=== PATIENT | male | born 1970 | race Caucasian/White ===

== ENCOUNTER 2023-02-25 16:22 | Emergency (ER) | payer OTHER ==
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
[2023-02-25 19:23] VITALS: BP 116/53; TEMP 97.2; O2SAT 92
== END 2023-02-25 18:55 | disposition home or self-care (01) ==
LOC: ER 16:22
DX: T21.22XA Burn of second degree of abdominal wall, initial encounter (principal); L03.311 Cellulitis of abdominal wall; F17.210 Nicotine dependence, cigarettes, uncomplicated
CPT/HCPCS: 99281

== ENCOUNTER 2023-10-13 22:57 | Inpatient (IN) | payer OTHER ==
--- OUTSIDE RECORDS SUMMARY | 2023-10-13 23:01 | XMS REPORT | Continuity of Care Document ---
Author Name Unknown Address [address] [facility] [address] th[address] Address [address] [facility] [place] [address] Care Team Providers Care General Office Worker Name Role Phone CHRISTINA WHITE Attending Clinician Unavailable Payers Payer Name Policy Type Policy Number Effective Date Expirati on Date Source [employer] [id number] 2012 00:00:00 Encounters Start Date/Time End Date/Time Encounter Type Admission Type Attending Clinicians Care Facility Care Department Encounter ID Source 2023-11-21 09:15:00 2023-11-21 09:15:00 Outpatient CHRISTINA WHITE [facility] ER [id number] [facility]
[2023-10-14] MEDS ORDERED: ONDANSETRON 4 MG/2 ML VIAL ONE ×2 (00:12→00:38)
[2023-10-14] MEDS ORDERED: FAMOTIDINE 20 MG/2 ML VIAL IV ONE (00:13)
[2023-10-14] MEDS ORDERED: MORPHINE 4 MG/ML SYR ONE ×2 (00:13→03:39)
[2023-10-14] MEDS ORDERED: HALOPERIDOL LACT 5 MG/ML INJ ONE (00:13)
[2023-10-14] MEDS ORDERED: NA CHLORIDE 0.9% 1,000 ML ONE ×2 (00:13→13:41)
[2023-10-14 00:30] LABS: Absolute Lymphocytes (CBC) 1.4 K/uL (0.7-4.9); Hematocrit 39.5 % (39.6-49.0); Lymphocytes % 6.4 % (15.3-44.8); MCV 79.6 fL (80-100); MPV 7.4 fL (7.6-11.3); Platelets 439 thou/uL (152-406); RBC Red Blood Cell Count 4.96 M/uL (4.33-5.43)
[2023-10-14 00:48] LABS: Albumin 3.8 g/dL (3.4-5.0); Bilirubin Total 0.5 mg/dL (0.2-1.0); Potassium 3.4 mEq/L (3.5-5.1)
[2023-10-14 01:13] LABS: Blood Morphology Comment NOT SEEN (NOT SEEN); Platelet Estimate INCR
[2023-10-14 03:21] LABS: Specific Gravity 1.017 (1.005-1.030); Urine Bilirubin NEGATIVE (Negative); Urine Blood Negative (Negative); Urine Clarity Clear (Clear); Urine Color Colorless (Yellow); Urine Glucose NEGATIVE (Negative); Urine Protein NEGATIVE (Negative); Urine Urobilinogen Normal (Normal)
[2023-10-14] MEDS ORDERED: ACETAMINOPHEN 500 MG TAB PO PRN (03:30)
--- NOTE | 2023-10-14 03:33 | EDPHYS ---
Physician Documentation [facility] Name: Amanda Arredondo Age: 53 yrs Sex: Male : 1970 Arrival Date: 10/13/2023 Time: 22:57 Bed 18 Private MD: ED Physician Marc Buckley HPI: 10/13 23:07 This 53 yrs old Male presents to ER via Unassigned with complaints of sp4 abdominal pain and vomiting. 10/14 03:32 53-year-old male with history of morbid obesity, COPD, congestive heart failure, sp4 hypertensive disorder, sleep apnea, and large ventral abdominal hernia, presents with acute onset of profuse vomiting starting at 12 PM prior to arrival. Patient arrived with EMS who administered 100 mcg IV fentanyl and 10 mg IV Reglan. Also some IV fluids were given , on 08/30/2023 patient was transferred to [facility] for presumed hernia incarceration associated with small bowel obstruction. Patient states he was managed medically at [facility] and discharged home 4 days later. . Historical: - Allergies: 10/13 23:13 No Known Allergies; me1 - PMHx: 23:13 Chronic obstructive lung disease; Congestive heart failure; Hypertensive disorder; me1 Sleep Apnea; Bowel problem; - PSHx: 10/14 03:37 colon resection; intestinal hernia (le); Tonsillectomy; la4 - Immunization history:: Adult Immunizations up to date. - Social history:: Smoking status: Patient/guardian denies using tobacco, Stopped _ months ago 1. - Family history:: not pertinent. ROS: 03:32 Constitutional: Negative for fever, chills, and weight loss, positive vomiting, sp4 positive diffuse abdominal pain, positive fatigue 03:32 All other systems are negative, Exam: 03:32 Constitutional: This is a well developed, well nourished patient who is awake, alert, sp4 morbidly obese male ill-appearing, nontoxic Head/Face: Normocephalic, atraumatic. Eyes: Pupils equal round and reactive to light, extra-ocular motions intact. Lids and lashes normal. Conjunctiva and sclera are not injected. Cornea within normal limits. Periorbital areas with no swelling, redness, or edema. ENT: Nares patent. No nasal discharge, no septal abnormalities noted. Tympanic membranes are normal and external auditory canals are clear. Oropharynx with no redness, swelling, or masses, exudates, or evidence of obstruction, uvula midline. Mucous membranes moist. Neck: Trachea midline, no thyromegaly or masses palpated, and no cervical lymphadenopathy. Supple, full range of motion without nuchal rigidity, or vertebral point tenderness. Chest/axilla: Normal chest wall appearance and motion. Nontender with no deformity. No lesions are appreciated. Cardiovascular: Regular rate and rhythm with a normal S1 and S2. No gallops, murmurs, or rubs. Normal PMI, no JVD. No pulse deficits. Respiratory: Lungs have equal breath sounds bilaterally, clear to auscultation and percussion. No rales, rhonchi or wheezes noted. No increased work of breathing, no retractions or nasal flaring. Abdomen/GI: Soft, obese abdomen, large lower ventral abdominal hernia that is not reducible. Decreased bowel sounds on auscultation. No tympany, abdomen distended but no tense tympany Back: No spinal tenderness. No costovertebral tenderness. There is sacral decubitus ulcer that is covered by the wound VAC. Male : Normal genitalia with no discharge or lesions. Skin: Warm, dry with normal turgor. Normal color with no rashes, no lesions, and no evidence of cellulitis. MS/ Extremity: Pulses equal, no cyanosis. Neurovascular intact. Full, normal range of motion. Neuro: Awake and alert, GCS 15, oriented to person, place, time, and situation. Cranial nerves II-XII grossly intact. Motor strength 5/5 in all extremities. Sensory grossly intact. Psych: Awake, alert, with orientation to person, place and time. Behavior, mood, and affect are within normal limits Vital Signs: 10/13 23:08 BP 152 / 98; Pulse 113; Resp 20; Temp 97.8(O); Pulse Ox 91% on R/A; Weight 117.93 kg; me1 Height 5 ft. 3 in. ; Pain 10; 10/14 00:00 BP 122 / 66; Pulse 90; Resp 20; Pulse Ox 94% ; la4 00:30 BP 125 / 74; Pulse 91; Resp 22; Pulse Ox 95% ; la4 01:30 BP 134 / 73; Pulse 91; Resp 20; Pulse Ox 97% ; la4 02:00 BP 112 / 75; Pulse 99; Resp 22; Temp 98.5; Pulse Ox 97% ; la4 04:34 BP 132 / 73; Pulse 75; Resp 18; Pulse Ox 98% on R/A; la4 10/13 23:08 Body Mass Index 46.06 (117.93 kg, 160.02 cm) me1 10/13 23:08 Pain Scale: Adult me1 10/13 23:08 o2 at 3 LPM via NC at home, applied and O2 sat increased to 97%. me1 Hillman Coma Score: 10/14 00:30 Eye Response: spontaneous(4). Motor Response: obeys commands(6). Verbal Response: la4 oriented(5). Total: 15. 04:34 Eye Response: spontaneous(4). Motor Response: obeys commands(6). Verbal Response: la4 oriented(5). Total: 15. MDM: 10/13 23:07 Patient medically screened. sp4 10/14 02:48 ED course: EXAM: CTAbdomen and Pelvis With Intravenous Contrast CLINICAL HISTORY: ABD sp4 PAIN TECHNIQUE: Axial computed tomography images of the abdomen and pelvis with intravenous contrast. Sagittal and coronal reformatted images were created and reviewed. This CT exam was performed using one or more of the following dose reduction techniques: automated exposure control, adjustment of the mA and/or kV according to patient size, and/or use of iterative reconstruction technique. COMPARISON: No relevant prior studies available. FINDINGS: Lung bases: Unremarkable. No mass. No consolidation. Mediastinum: Mild to moderate thickening of the mid to distal esophagus extending to the GE junction. ABDOMEN: Liver: The liver is enlarged and diffusely low in density compatible with steatosis. Gallbladder and bile ducts: Unremarkable. No calcified stones. No ductal dilation. Pancreas: Unremarkable. No mass. No ductal dilation. Spleen: Unremarkable. No splenomegaly. Adrenals: Unremarkable. No mass. Kidneys and ureters: Normal renal cortical enhancement bilaterally. Bilateral cysts, the largest at the lower pole on the left measuring 9.8 cm. No follow-up imaging is recommended. JACR 2018 Nov; 264-273, Management of the Incidental Renal Mass on CT, [employer] 2020; 814-848, Bosniak Classification of Cystic Renal Masses, Version 2019. No calculi. No hydronephrosis. Stomach and bowel: Moderate to severe gastric distention. Colonic diverticula without adjacent inflammatory change. PELVIS: Appendix: The appendix is collimated off the [id number]. Bladder: The urinary bladder is decompressed. Reproductive: Unremarkable as visualized. ABDOMEN and PELVIS: Intraperitoneal space: Unremarkable. No free air. No significant fluid collection. Bones/joints: Multilevel spondylosis. No acute fracture. Subtle serpentine sclerosis of the femoral heads bilaterally, right greater than left most compatible with early avascular necrosis. No subchondral collapse. No dislocation. Soft tissues: Rectus muscle diastases with a large ventral abdominal wall hernia extending to the right and which is partially collimated off the [id number]. The hernia contains numerous small bowel loops, including of small bowel anastomosis as well as the proximal to mid large bowel. There are multiple borderline prominent fluid-filled small bowel loops. Infiltrative changes within and subjacent to the hernia. Small bilateral fat-containing inguinal hernias. Vasculature: Mild to moderate atherosclerotic disease. No abdominal aortic aneurysm. The main portal, superior mesenteric and splenic veins are patent. Lymph nodes: Subcentimeter gastrohepatic, selene hepatic and portacaval lymph nodes. IMPRESSION: 1. Findings suggestive of nonspecific esophagitis with most pronounced thickening at the level of the GE junction. Direct visualization may be necessary for further evaluation. 2. Significant gastric distention. Numerous borderline prominent small bowel loops. There is a large ventral abdominal hernia containing numerous small bowel loops as well as the proximal to mid large bowel. The possibility of a developing obstruction cannot be excluded on the basis of this examination. Mild infiltrative changes within and subjacent to the hernia which can be seen in the setting of incarceration. 3. Other findings as above. Electronically signed by: Clement Obando MD 10/14/2023 02:18 AM. 03:32 Differential Diagnosis altered mental status, sepsis, flu, SBO, incarcerated abdominal sp4 hernia. Data reviewed: vital signs, nurses notes, EMS record, old medical records, lab test result(s), radiologic studies, CT scan. Consideration of Admission/Observation Patient was admitted/placed on observation. Escalation of care including admission/observation considered. Management of patient was discussed with the following: Hospitalist: Dr. Miguel. Outsole Splicer: Dr. Malcolm general surgery. ED course: Patient warrants admission to the hospital. NG tube was placed in ER and 1 L of gastric juice was evacuated from the stomach. Patient feels improved but request pain medicine. Will admit to hospitalist with consultation to general surgery for SBO. . 04:45 ED course: EXAM: XR Abdomen, 1 View CLINICAL HISTORY: The patient is 53 years old and sp4 is Male; NG tube placement TECHNIQUE: Frontal supine view of the abdomen/pelvis. COMPARISON: No relevant prior studies available. FINDINGS: Gastrointestinal tract: Unremarkable. No dilation. Bones/joints: Unremarkable. No acute fracture. Tubes, lines and devices: Nasogastric tube coursing below the diaphragm with tip and sidehole overlying the left upper quadrant. IMPRESSION: Nasogastric tube coursing below the diaphragm with tip and sidehole overlying the left upper quadrant.. 10/13 23:06 Order name: CBC with Diff; Complete Time: 03:16 [facility] 10/13 23:06 Order name: CMP; Complete Time: 03:16 [facility] 10/13 23:06 Order name: Lipase; Complete Time: 03:16 [facility] 10/13 23:06 Order name: Urinalysis w/ reflexes; Complete Time: 03:47 [facility] 10/14 00:38 Order name: Manual Differential; Complete Time: 03:16 [facility] 10/14 03:35 Order name: CBC with Automated Diff [facility] 10/14 03:35 Order name: CBC with Automated Diff [facility] 10/14 03:35 Order name: Comprehensive Metabolic Panel [facility] 10/14 03:35 Order name: Comprehensive Metabolic Panel [facility] 10/14 03:46 Order name: Lactate w/ 2H reflex if indic. [facility] 10/13 23:06 Order name: CT Abd/Pelvis - IV Contrast Only [facility] 10/14 03:16 Order name: Abdomen 1 View XRAY [facility] 10/14 03:35 Order name: CONS Physician Consult [facility] 10/13 23:06 Order name: IV Saline Lock; Complete Time: 00:24 [facility] 10/13 23:06 Order name: Labs collected and sent; Complete Time: 00:24 [facility] 10/14 02:49 Order name: NG Tube; Complete Time: 03:34 [facility] Administered Medications: 00:23 Drug: Haloperidol IVP 2.5 mg/50 mL 2.5 mg IVP once; Place patient on a school lunch monitor me1 Route: IVP; Site: right antecubital; 00:23 Drug: NS 0.9% IV 1000 ml IV at 1 bolus Per protocol; 1000 mL bolus Route: IV; Rate: 1 me1 bolus; Site: right antecubital; 00:23 Drug: Famotidine IVP 20 mg IVP once; dilute with 10 mL 0.9% NaCl; give over 2 minutes me1 Route: IVP; Site: right antecubital; 00:23 Drug: Ondansetron IVP 4 mg IVP once; over 2 minutes Route: IVP; Site: right antecubital;me1 00:23 Drug: morphine IVP or IV 4 mg IVP once over 4 mins Route: IVP; Infused Over: 4 mins; me1 Site: right antecubital; 03:59 Drug: morphine IVP or IV 4 mg IVP once over 4 mins Route: IVP; Infused Over: 4 mins; la4 Site: right antecubital; 04:51 Follow up: Response: No adverse reaction; Pain is decreased la4 03:59 Drug: metoCLOPramide IVP 10 mg IVP once; over 1 to 2 minutes Route: IVP; Site: right la4 antecubital; 04:50 Follow up: Response: No adverse reaction; Nausea is decreased la4 03:59 Drug: NS 0.9% IV 1000 ml IV at 125 ml/hr continuous Route: IV; Rate: 125 ml/hr; Site: la4 right antecubital; Disposition Summary: 10/14/23 03:32 Hospitalization Ordered Notes: Hospitalization Status: Inpatient Admission sp4 Provider: Bear Miguel Condition: Stable sp4 Problem: new sp4 Symptoms: have improved sp4 Bed/Room Type: Standard sp4 Location: Intensive Care Unit(10/14/23 03:55) lg3 Room Assignment: 5-(10/14/23 03:55) lg3 Diagnosis - Small bowel obstruction, abdominal distention, gastric distention, ventral sp4 abdominal hernia without incarceration Forms: - Medication Reconciliation Form sp4 - SBAR form sp4 - Leadership Thank You Letter sp4 Signatures: Dispatcher [employer] An Goldsmith RN RN Esha Moseley RN RN lg3 Marc Buckley MD MD sp4 Laura Gupta RN RN me1 Kimi Paul RN RN la4 Corrections: (The following items were deleted from the chart) 01/13 23:15 23:13 PMHx: bowel obstruction (Sleep Apnea); me1 me1 10/14 03:55 03:32 Telemetry/MedSurg (Inpatient) sp4 cg 03:55 03:32 sp4 cg 03:55 03:55 Intensive Care Unit cg lg3 03:55 03:55 5- cg lg3
--- NOTE | 2023-10-14 03:33 | ER ---
Nurse's Notes [facility] Name: Amanda Arredondo Age: 53 yrs Sex: Male : 1970 Arrival Date: 10/13/2023 Time: 22:57 Bed 18 Private MD: Diagnosis: Small bowel obstruction, abdominal distention, gastric distention, ventral abdominal hernia without incarceration Presentation: 10/13 23:08 Chief complaint: EMS states: toned out for abdominal pain. Large abdominal hernia me1 noted. Patient recently admitted to [facility] for bowel obstruction that resolved with NG decompression and bowel rest. Patient is only eating liquid diet at this time. Earlier today pain returned with n/v. 20g to RAC, EMS administered fentanyl 100 mcg and reglan 10 mg IV. Pain on arrival to ER is 7/10, sharp and cramping. Coronavirus screen: Vaccine status: Patient reports receiving the 2nd dose of the covid vaccine. Ebola Screen: No symptoms or risks identified at this time. Initial Sepsis Screen: Does the patient meet any 2 criteria? HR > 90 bpm. No. Patient's initial sepsis screen is negative. Does the patient have a suspected source of infection? No. Patient's initial sepsis screen is negative. Risk Assessment: Do you want to hurt yourself or someone else? Patient reports no desire to harm self or others. Onset of symptoms was October 13, 2023 at 12:00. 23:08 Method Of Arrival: EMS me1 23:08 Acuity: BETTY 3 me1 Triage Assessment: 23:13 General: Appears uncomfortable, ill, obese, Behavior is calm, cooperative, appropriate me1 for age, Reports abdominal pain and nausea that started about noon today. Pain: Complains of pain in abdomen Pain does not radiate. Pain currently is 7 out of 10 on a pain scale. Quality of pain is described as crampy, sharp, Pain began suddenly, Is continuous. Neuro: Level of Consciousness is awake, alert, obeys commands, Oriented to person, place, time, situation, Appropriate for age. Cardiovascular: Capillary refill < 3 seconds Patient's skin is warm and dry. Respiratory: Airway is patent Respiratory effort is even, unlabored, Respiratory pattern is regular, symmetrical. GI: large abdominal hernia noted with abdominal binder in place for support. Reports lower abdominal pain, upper abdominal pain, nausea, vomiting, since noon today. Historical: - Allergies: 23:13 No Known Allergies; me1 - PMHx: 23:13 Chronic obstructive lung disease; Congestive heart failure; Hypertensive disorder; me1 Sleep Apnea; Bowel problem; - PSHx: 10/14 03:37 colon resection; intestinal hernia (le); Tonsillectomy; la4 - Immunization history:: Adult Immunizations up to date. - Social history:: Smoking status: Patient/guardian denies using tobacco, Stopped _ months ago 1. - Family history:: not pertinent. Screenin:30 [facility] ED Fall Risk Assessment (Adult) History of falling in the last 3 months, la4 including since admission No falls in past 3 months (0 pts) Confusion or Disorientation No (0 pts) Intoxicated or Sedated No (0 pts) Impaired Gait Yes (1 pt) Mobility Assist Device Used Yes (1 pt) Altered Elimination Yes (1 pt) Score/Fall Risk Level 3 or more points = High Risk Oriented to surroundings, Educated pt \T\ family on fall prevention, incl call for assistance when getting out of bed, Provided non-skid footwear, Hourly rounding (assess needs \T\ fall precautionary measures) done, Offered frequent toileting (1:1 observation). Abuse screen: Denies threats or abuse. Denies injuries from another. Nutritional screening: No deficits noted. Tuberculosis screening: No symptoms or risk factors identified. Assessment: 10/13 23:21 General: See triage assessment. . tx1 10/14 01:47 GI: Abdomen is round large abdominal hernia noted to hang from the left lower abdomen. la4 Pt using sheet to help hold weight of hernia up Abd is non tender. Vital Signs: 10/13 23:08 BP 152 / 98; Pulse 113; Resp 20; Temp 97.8(O); Pulse Ox 91% on R/A; Weight 117.93 kg; tx1 Height 5 ft. 3 in. ; Pain 7/10; 10/14 00:00 BP 122 / 66; Pulse 90; Resp 20; Pulse Ox 94% ; la4 00:30 BP 125 / 74; Pulse 91; Resp 22; Pulse Ox 95% ; la4 01:30 BP 134 / 73; Pulse 91; Resp 20; Pulse Ox 97% ; la4 02:00 BP 112 / 75; Pulse 99; Resp 22; Temp 98.5; Pulse Ox 97% ; la4 04:34 BP 132 / 73; Pulse 75; Resp 18; Pulse Ox 98% on R/A; la4 10/13 23:08 Body Mass Index 46.06 (117.93 kg, 160.02 cm) tx1 10/13 23:08 Pain Scale: Adult tx1 10/13 23:08 o2 at 3 LPM via NC at home, applied and O2 sat increased to 97%. [facility] Vitals: 10/14 02:00 Cardiac Rhythm Assessment Irregular Atrial fibrillation. la4 04:34 Cardiac Rhythm Assessment Regular Sinus rhythm. la4 [place] Coma Score: 00:30 Eye Response: spontaneous(4). Motor Response: obeys commands(6). Verbal Response: la4 oriented(5). Total: 15. 04:34 Eye Response: spontaneous(4). Motor Response: obeys commands(6). Verbal Response: la4 oriented(5). Total: 15. ED Course: 10/13 23:03 Patient arrived in ED. lg3 23:05 Marc Buckley MD is Attending Physician. sp4 23:07 Laura Gupta, ANTHONY is Primary Nurse. me1 23:13 Triage completed. tx1 23:13 Arm band placed on Patient placed in an exam room. tx1 10/14 00:30 Patient has correct armband on for positive identification. Placed in gown. Bed in low la4 position. Call light in reach. Side rails up X 1. Provided Education on: plan of care. Client placed on continuous cardiac and pulse oximetry monitoring. NIBP monitoring applied. 00:30 No provider procedures requiring assistance completed. IV is patent, is intact, with la4 good blood return, Flushed right antecubital peripheral line saline lock 10ml saline. 01:53 CT Abd/Pelvis - IV Contrast Only In Process Unspecified. EDMS 03:31 Bear Miguel MD is Hospitalizing Provider. sp4 03:34 No apparent distress. Awaiting bed assignment, Awaiting for x-ray. la4 03:34 NGT: inserted 18 Fr. via right nare. verified placement of air over stomach, verified la4 return of gastric contents, Placement verified by X-ray, to continuous suction. Returned gastric contents. Amount of gastric contents removed by suction 2000ml. Patient tolerated well. secured to right nostril using NG tube securement strip. Inserted saline lock: 20 gauge in right antecubital area, using aseptic technique. 03:37 Patient admitted, IV remains in place. la4 03:47 Abdomen 1 View XRAY In Process Unspecified. EDMS 04:31 Lactate w/ 2H reflex if indic. Sent. la4 Administered Medications: 00:23 Drug: Haloperidol IVP 2.5 mg/50 mL 2.5 mg IVP once; Place patient on a sweater operator me1 Route: IVP; Site: right antecubital; 00:23 Drug: NS 0.9% IV 1000 ml IV at 1 bolus Per protocol; 1000 mL bolus Route: IV; Rate: 1 me1 bolus; Site: right antecubital; 00:23 Drug: Famotidine IVP 20 mg IVP once; dilute with 10 mL 0.9% NaCl; give over 2 minutes me1 Route: IVP; Site: right antecubital; 00:23 Drug: Ondansetron IVP 4 mg IVP once; over 2 minutes Route: IVP; Site: right antecubital;me1 00:23 Drug: morphine IVP or IV 4 mg IVP once over 4 mins Route: IVP; Infused Over: 4 mins; me1 Site: right antecubital; 03:59 Drug: morphine IVP or IV 4 mg IVP once over 4 mins Route: IVP; Infused Over: 4 mins; la4 Site: right antecubital; 04:51 Follow up: Response: No adverse reaction; Pain is decreased la4 03:59 Drug: metoCLOPramide IVP 10 mg IVP once; over 1 to 2 minutes Route: IVP; Site: right la4 antecubital; 04:50 Follow up: Response: No adverse reaction; Nausea is decreased la4 03:59 Drug: NS 0.9% IV 1000 ml IV at 125 ml/hr continuous Route: IV; Rate: 125 ml/hr; Site: la4 right antecubital; Medication: 00:30 VIS not applicable for this client. la4 Output: 03:30 Urine: 400ml (Voided); Total: 400ml. la4 Outcome: 03:32 Decision to Hospitalize by Provider. sp4 03:34 Admitted to Med/surg la4 03:37 Condition: stable la4 04:48 Admitted to ICU accompanied by nurse, via stretcher, room 5, with oxygen, on monitor, la4 with chart, Report called to Yu CRUZ at bedside 04:48 Instructed on the need for admit, Demonstrated understanding of plan of care 05:14 Patient left the ED. la4 Signatures: Dispatcher [employer] Esha Prescott RN RN lg3 Marc Buckley MD MD sp4 Laura Gupta RN RN me1 Kimi Paul RN RN la4 Corrections: (The following items were deleted from the chart) 10/13 23:15 23:13 PMHx: bowel obstruction (Sleep Apnea); me1 me1
[2023-10-14] MEDS ORDERED: METOCLOPRAMIDE 10 MG/2mL INJ ONE (03:39)
--- NOTE | 2023-10-14 04:08 | P.HP ---
Certification for Inpatient Patient admitted to: Inpatient With expected LOS: >2 Midnights Practitioner: I am a practitioner with admitting privileges, knowledge of patient current condition, hospital course, and medical plan of care. Services: Services provided to patient in accordance with Admission requirements found in Title 42 Section 412.3 of the Code of Federal Regulations Patient History Date of Service: 10/14/23 Reason for admission: Abdominal pain and distention History of Present Illness: 53-year-old male with past medical history of small bowel obstruction and v entral hernia s/p repair and partial bowel resection, hypertension, diabetes brought to ER with abdominal pain and abdominal distention which has been going on for the last few days and has been progressively worsening and was brought to ER associated with intractable nausea and vomiting. Denies any diarrhea No fever or chills. Denies any chest pain or shortness of breath. Patient was assessed in the ER and was admitted for further management as he was found to have small bowel obstruction and intractable nausea and vomiting Allergies No Known Allergies Allergy (Unverified 10/14/23 03:52) Home medications list reviewed: Yes - Past Medical/Surgical History Past Medical History: Reviewed- Non-Contributory -: SBODiabetesHypertension Past Surgical History: Reviewed- Non-Contributory -: Bowel resection - Family History Family History: Reviewed- Non-Contributory - Social History Smoking Status: Never smoker Review of Systems 10-point ROS is otherwise unremarkable General: Weakness Respiratory: Unremarkable Cardiovascular: Unremarkable Gastrointestinal: Nausea, Vomiting, Abdominal Pain, Distention Genitourinary: Unremarkable Integumentary: Unremarkable Neurological: Unremarkable Physical Examination - Vital Signs Temperature: 98.6 F Blood Pressure: 136/82 Pulse: 78 Respirations: 18 Pulse Ox (%): 98 - Physical Exam General: Alert, Oriented x3, Cooperative, Moderate distress, Obese HEENT: Atraumatic, Normocephalic Neck: Supple Respiratory: Clear to auscultation bilaterally, Normal air movement Cardiovascular: Regular rate/rhythm, Normal S1 S2, No murmurs Capillary refill: <2 Seconds Gastrointestinal: Distended, Tenderness, Guarding Musculoskeletal: No clubbing, No swelling Integumentary: No rashes, No breakdown Neurological: Normal gait, Normal speech, Normal strength at 5/5 x4 extr, Normal affect Lymphatics: No axilla or inguinal lymphadenopathy - Studies Laboratory Data (last 24 hrs) 10/13/23 10/13/23 23:51 23:51 WBC 22.10 H Hgb 12.8 L Hct 39.5 L Plt Count 439 H Sodium 136 Potassium 3.4 L BUN 9 Creatinine 1.06 Glucose 201 H Total Bilirubin 0.5 AST 51 H ALT 104 H Alkaline Phosphatase 149 H Lipase 28 Assessment and Plan - Problems (Diagnosis) (1) Small bowel obstruction Current Visit: Yes Status: Acute Plan: Monitor closely on telemetry N.p.o. Surgical consult Started on IV fluids Pain control Start on Protonix NG tube to low intermittent wall suction Leukocytosis noted Will start on Zosyn empirically Will obtain cultures (2) Ventral hernia with bowel obstruction Current Visit: Yes Status: Acute Plan: History of surgery in the past Surgical consult awaited Pain control (3) Diabetes Current Visit: Yes Status: Chronic Plan: Insulin sliding scale Will get an A1c in a.m. Discharge Plan: Home Plan to discharge in: Greater than 2 days - Advance Directives Does patient have a Living Will: No Does patient have a Durable POA for Healthcare: No - Code Status/Comfort Care Code Status: Full Code Time Spent Managing Pts Care (In Minutes): 56
[2023-10-14] MEDS ORDERED: SODIUM CHLORIDE 0.9% 10ML INJ IV PRN (05:08)
[2023-10-14] MEDS: NA CHLORIDE 0.9% 1,000 ML IV SCH ×3 (05:20→23:31)
[2023-10-14 05:32] VITALS: BMI 43.7
[2023-10-14] MEDS: PANTOPRAZOLE 40 MG INJ IVP SCH (08:29)
[2023-10-14] MEDS: PIPER TAZO 3.375 GM in NA CHLORIDE 0.9% 100 ML IV SCH ×2 (08:29→17:38)
[2023-10-14] MEDS ORDERED: ONDANSETRON 4 MG/2 ML VIAL IV PRN (08:30)
[2023-10-14] MEDS: MORPHINE 2 MG/ML SYR IV PRN (13:44)
[2023-10-14] MEDS ORDERED: INFLUENZA VACCINE (for 6+ mo) 0.5 ML DOSE IMVAC ONE (15:00)
--- NOTE | 2023-10-14 17:03 | CON ---
Date of Consultation: 10/14/2023 Reason For Service: Small bowel obstruction. History Of Present Illness: This is a case of a 53-year-old patient with a complex problem. He has a ventral hernia for few years. He has been repairing at centers but the hernia still present and to the point that it is gigantic. It is almost a size of his belly itself but they did not fix that. They treat him conservatively as per patient due to the size of the hernia, they think it may not be fixable. Mentioned about the and they cannot rule out obstruction. There is n o dysuria, hematuria, hematochezia, or melena. There is no recent traveling out of the country. The re is no family member sick at home. He has a surgeon that he will see in the next few days that he is going to try to take a look at his hernia to see if he can take the challenge. His name is Dr. Anjana Macedo, that he specializes in abdominal wall reconstructions. The patient was admitted to [facility]. He feels better. There is no nausea or vomiting today. Surgical consult was derrick tam for evaluation. Past Medical History: Include diabetes, hypertension. He also say he has pulmonary hypertension. Past Surgical History: Bowel resections, multiple hernias repaired. Family History: Noncontributory. Social History: He does not smoke. He does not drink alcohol. Allergies: NONE. Review of Systems: See HPI. Today, he has no vomiting and he feels better with less abdominal pain. Physical Examination: HEENT: Pupils are equal and reactive. Anicteric. Neck: Supple. Chest: Clear. Heart: S1, S2. Abdomen: Soft and depressible. There is a gigantic hernia present mainly to the right side, which i s probably as big as the abdomen itself. It has been there for a long time going to have some small bowel and large bowel present in that region. There is no guarding or rebound. No skin b reak. No fistula seen. Extremities: Good capillary refill. Rectal: Deferred. Imaging: CAT scan of the abdomen and pelvis shows a large ventral hernia, which is described above a nd they cannot rule out a bowel obstruction due to fluid levels. No pneumatosis seen. Laboratory Data: WBC count of 22, hemoglobin is 12.8, potassium 3.4, glucose 201. Assessment: 53-year-old patient who came to us with a large hernia for many years. He has been zena g to many centers, but since he unfixable. He still has another doctor lined up in the ne xt few days. He has a visit with him. But last night, he had some pain, decided to come to the ER. CAT scan was done and they cannot rule out obstruction. Did not see anything obvious since most of intestines are outside the hernia chronically. The patient feels better. There is no peritonitis. No guarding or rebound present. Still we believe we should give him bowel rest at least until tomorr ow then we can clinically follow him with diet or just do small bowel series if we believe he has not improved. At this moment, we are going to leave him with bowel rest and hydration. The abdomen is benign today. Hopefully, it will continue like that, so he can have his elective surgery. HM/MODL Voice ID: [id number] Report ID: [id number]
[2023-10-14 21:10] VITALS: O2SAT 96
[2023-10-15] MEDS: PIPER TAZO 3.375 GM in NA CHLORIDE 0.9% 100 ML IV SCH ×3 (00:42→17:03)
[2023-10-15] MEDS: MORPHINE 2 MG/ML SYR IV PRN ×2 (00:42→09:14)
[2023-10-15 07:08] LABS: Absolute Lymphocytes (CBC) 1.5 K/uL (0.7-4.9); Hematocrit 33.3 % (39.6-49.0); Lymphocytes % 12.3 % (15.3-44.8); Platelets 355 thou/uL (152-406); RBC Red Blood Cell Count 4.11 M/uL (4.33-5.43)
[2023-10-15 07:27] LABS: Bilirubin Total 0.4 mg/dL (0.2-1.0); Potassium 3.3 mEq/L (3.5-5.1); Protein, Total 7.3 g/dL (6.4-8.2)
[2023-10-15] MEDS: PANTOPRAZOLE 40 MG INJ IVP SCH (08:57)
[2023-10-15] MEDS: NA CHLORIDE 0.9% 1,000 ML IV SCH ×2 (08:57→21:03)
--- NOTE | 2023-10-15 09:55 | RAD REPORT ---
EXAM DESCRIPTION: RAD - Abdomen Single View - 10/14/2023 3:45 am CLINICAL HISTORY: The patient is 53 years old and is Male; NG tube placement TECHNIQUE: Frontal supine view of the abdomen/pelvis. COMPARISON: No relevant prior studies available. FINDINGS: Gastrointestinal tract: Unremarkable. No dilation. Bones/joints: Unremarkable. No acute fracture. Tubes, lines and devices: Nasogastric tube coursing below the diaphragm with tip and sidehole ove rlying the left upper quadrant. IMPRESSION: Nasogastric tube coursing below the diaphragm with tip and sidehole overlying the left u pper quadrant. Electronically signed by: Anibal Dee MD 10/14/2023 04:12 AM DRILL RIG OPERATOR HELPER Due to temporary technical issues with the PACS/Fluency reporting system, reports are being signed by the in house radiologists without review as a courtesy to insure prompt reporting. The interpreting radiologist is fully responsible for the content of the report.
--- NOTE | 2023-10-15 10:56 | P.PN ---
Subjective Date of Service: 10/15/23 Chief Complaint: Abdominal pain and distention Review of Systems General: Weakness, Unremarkable Eyes: Unremarkable ENT: Unremarkable Respiratory: Unremarkable Cardiovascular: Unremarkable Gastrointestinal: Unremarkable Musculoskeletal: Unremarkable Integumentary: Unremarkable Neurological: Weakness Physical Examination - Vital Signs Temperature: 98.0 F Blood Pressure: 179/84 Pulse: 70 Respirations: 20 Pulse Ox (%): 96 - Physical Exam General: Alert, In no apparent distress, Oriented x3, Cooperative HEENT: Atraumatic, PERRLA, EOMI Neck: Supple, JVD not distended Respiratory: Clear to auscultation bilaterally, Normal air movement Cardiovascular: No edema, Regular rate/rhythm, Normal S1 S2 Capillary refill: <2 Seconds Gastrointestinal: Normal bowel sounds, Distended, Tenderness Musculoskeletal: No clubbing, No tenderness Integumentary: No rashes Neurological: Normal speech, Normal tone, Normal affect Lymphatics: No axilla or inguinal lymphadenopathy Assessment And Plan - Plan Interval history. 10/15/22. Patient seen at bedside. NG tube to low intermittent wall suction. Patient reported passing gas yesterday. Considerable amount of NG drainage from NG tube. Surgery recommends abdominal x-ray and to clamp NG tube if results better. Patient noted with bulging hernia from his abdomen. Patient currently denies any pain. Continue supportive care. (1) Small bowel obstruction Current Visit: Yes Status: Acute Plan: Monitor closely on telemetry N.p.o. Surgical consult Started on IV fluids Pain control Start on Protonix NG tube to low intermittent wall suction Leukocytosis noted Will start on Zosyn empirically Will obtain cultures (2) Ventral hernia with bowel obstruction Current Visit: Yes Status: Acute Plan: History of surgery in the past Surgical consult awaited Pain control (3) Diabetes Current Visit: Yes Status: Chronic Plan: Insulin sliding scale Will get an A1c in a.m. (1) Small bowel obstruction Current Visit: Yes Status: Acute Plan: Monitor closely on telemetry N.p.o. Surgical consult Started on IV fluids Pain control Start on Protonix NG tube to low intermittent wall suction Leukocytosis noted Will start on Zosyn empirically Will obtain cultures (2) Ventral hernia with bowel obstruction Current Visit: Yes Status: Acute Plan: History of surgery in the past Surgical consult awaited Pain control (3) Diabetes Current Visit: Yes Status: Chronic Plan: Insulin sliding scale Will get an A1c in a.m. Discharge Plan: Home Plan to discharge in: 48 Hours - Code Status/Comfort Care Code Status Assessed: Yes Code Status: Full Code Physician Review: Patient Assessed, Agree with Above Assessment and Plan Critical Care: No
--- NOTE | 2023-10-15 11:37 | RAD REPORT ---
EXAM DESCRIPTION: RAD - Abdomen 1 View (KUB) - 10/15/2023 11:22 am CLINICAL HISTORY: SBO COMPARISON: Abdomen Single View dated 10/14/2023; Abdomen Pelvis W Contrast dated 10/14/2023 TECHNIQUE: Single AP view of the abdomen. FINDINGS: Enteric tube tip projects near the fundus of the stomach laterally. Mild gaseous distensio n throughout the mid to distal colon. Relative paucity of gas throughout the small bowel, a nonspecif ic finding. No air-fluid levels, free air, or pneumatosis. No suspicious calcifications. No significant bony abnormality. IMPRESSION: Nonspecific relative paucity of gas throughout the small bowel.
--- NOTE | 2023-10-15 11:38 | RAD REPORT ---
EXAM DESCRIPTION: CT - Abdomen Pelvis W Contrast - 10/14/2023 6:45 am CLINICAL HISTORY: ABD PAIN TECHNIQUE: Axial computed tomography images of the abdomen and pelvis with intravenous contrast. S agittal and coronal reformatted images were created and reviewed. This CT exam was performed using one or more of the following dose reduction techniques: automated exposure control, adjustment of t he mA and/or kV according to patient size, and/or use of iterative reconstruction technique. COMPARISON: No relevant prior studies available. FINDINGS: Lung bases: Unremarkable. No mass. No consolidation. Mediastinum: Mild to moderate thickening of the mid to distal esophagus extending to the GE junctio n. ABDOMEN: Liver: The liver is enlarged and diffusely low in density compatible with steatosis. Gallbladder and bile ducts: Unremarkable. No calcified stones. No ductal dilation. Pancreas: Unremarkable. No mass. No ductal dilation. Spleen: Unremarkable. No splenomegaly. Adrenals: Unremarkable. No mass. Kidneys and ureters: Normal renal cortical enhancement bilaterally. Bilateral cysts, the largest at the lower pole on the left measuring 9.8 cm. No follow-up imaging is recommended. JACR 2018 Nov; 264 -273, Management of the Incidental Renal Mass on CT, [employer] 2020; 814-848, Bosniak Classificat ion of Cystic Renal Masses, Version 2019. No calculi. No hydronephrosis. Stomach and bowel: Moderate to severe gastric distention. Colonic diverticula without adjacent in flammatory change. PELVIS: Appendix: The appendix is collimated off the [id number]. Bladder: The urinary bladder is decompressed. Reproductive: Unremarkable as visualized. ABDOMEN and PELVIS: Intraperitoneal space: Unremarkable. No free air. No significant fluid collection. Bones/joints: Multilevel spondylosis. No acute fracture. 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 No subch ondral collapse. No dislocation. Soft tissues: Rectus muscle diastases with a large ventral abdominal wall hernia extending to the r ight and which is partially collimated off the [id number]. The hernia contains numerous small elysia l loops, including of small bowel anastomosis as well as the proximal to mid large bowel. There are m ultiple borderline prominent fluid-filled small bowel loops. Infiltrative changes within and subjacen t to the hernia. Small bilateral fat-containing inguinal hernias. Vasculature: Mild to moderate atherosclerotic disease. No abdominal aortic aneurysm. The main selene l, superior mesenteric and splenic veins are patent. Lymph nodes: Subcentimeter gastrohepatic, selene hepatic and portacaval lymph nodes. IMPRESSION: 1. Findings suggestive of nonspecific esophagitis with most pronounced thickening at t he level of the GE junction. Direct visualization may be necessary for further evaluation. 2. Significant gastric distention. Numerous borderline prominent small bowel loops. There is a larg e ventral abdominal hernia containing numerous small bowel loops as well as the proximal to mid large bowel. The possibility of a developing obstruction cannot be excluded on the basis of this examinati on. Mild infiltrative changes within and subjacent to the hernia which can be seen in the setting of incarceration. 3. Other findings as above. Electronically signed by: Clement Obando MD 10/14/2023 02:18 AM CHRONOGRAPH OPERATOR Due to temporary technical issues with the PACS/Fluency reporting system, reports are being signed by the in house radiologists without review as a courtesy to insure prompt reporting. The interpreting radiologist is fully responsible for the content of the report
--- NOTE | 2023-10-15 14:39 | P.PN ---
Subjective Date of Service: 10/15/23 Chief Complaint: Abdominal pain and distention Subjective: Ambulating, Improving Review of Systems Gastrointestinal: Vomiting (no), Abdominal Pain (no), No Distention, Melena (no), Hematochezia (no), Other (+ Flatus) Genitourinary: Dysuria (no) Physical Examination - Vital Signs Temperature: 97.4 F Blood Pressure: 148/69 Pulse: 67 Respirations: 16 Pulse Ox (%): 96 - Physical Exam General: Alert, In no apparent distress, Oriented x3, Cooperative HEENT: PERRLA, EOMI Neck: Supple Gastrointestinal: Soft and benign, No rebound, No guarding, Other (very large chronic hernia, non tender) Assessment And Plan Physician Review: Patient Assessed, Agree with Above Assessment and Plan
[2023-10-15] MEDS: SILDENAFIL CITRATE 20 MG TABLET PO SCH (21:02)
[2023-10-15] MEDS: carvediloL 6.25 MG TAB PO SCH (21:02)
[2023-10-16] MEDS: PIPER TAZO 3.375 GM in NA CHLORIDE 0.9% 100 ML IV SCH ×3 (01:02→16:18)
[2023-10-16] MEDS: PANTOPRAZOLE 40 MG INJ IVP SCH (08:05)
[2023-10-16] MEDS: carvediloL 6.25 MG TAB PO SCH (08:05)
[2023-10-16] MEDS: NA CHLORIDE 0.9% 1,000 ML IV SCH (08:06)
[2023-10-16] MEDS: SILDENAFIL CITRATE 20 MG TABLET PO SCH (08:39)
[2023-10-16] MEDS ORDERED: lisinopriL 20 MG TAB PO SCH (09:00)
[2023-10-16] MEDS ORDERED: ATORVASTATIN 40 MG TAB PO SCH (09:00)
[2023-10-16] MEDS ORDERED: FUROSEMIDE 40 MG TABLET PO SCH (09:00)
[2023-10-16 12:11] VITALS: TEMP 97.7
--- NOTE | 2023-10-16 12:42 | PN ---
Subjective: History of gigantic ventral hernias, chronic and also on and off partial small bowel obs truction. The patient is doing better. Passing gas, having bowel movement. No nausea, no vomiting, no abdominal pain at this moment. His hernia has been like that for years. He already has a surgeo n in [place], who is seen and they have some plans in trying to fix that. Objective: Chest: Clear. Abdomen: Soft and depressible. No guarding or rebound. No peritoneal signs. Extremities: Good capillary refill. We can remove the NG tube. He is already tolerating a liquid diet. We are going to advance diet and then after that, if he improves and the bowel obstruction resolved, then he will be discharged home and follow up with his surgeon in [place] for abdominal wall reconstruction. JACINTA/FIORELLA Voice ID: [id number] Report ID: [id number]
--- NOTE | 2023-10-16 16:36 | P.DS ---
Admission Date: 10/14/23 Discharge Date: 10/16/23 Disposition: ROUTINE DISCHARGE Discharge Condition: GOOD Reason for Admission: Abdominal pain and distention Hospital Course: Patient is a 53-year-old male with a past medical history significant for small bowel obstruction and ventral hernia s/p repair and partial bowel resection, hypertension, DM 2 who presents with complaint of abdominal pain and and abdominal distention with associated signs and symptoms of intractable nausea and vomiting. Patient was diagnosed with small bowel obstruction. Patient was placed on NG tube to low intermittent wall suction. Surgery was consulted. Patient was started on the clear liquid diet and diet was advanced per recommendation of surgeon. Patient's electrolytes were replaced. Over time patient started passing gas patient and clinical symptoms improved. Patient bowel functions returned. Patient was cleared by surgeon for discharge. Patient was prescribed Augmentin and Protonix. Patient was instructed to follow-up with his PCP and surgeon. Patient verbalized understanding of discharge instructions and was discharged in stable condition. Vital Signs/Physical Exam: Temp Pulse Resp BP Pulse Ox 97.7 F 70 18 101/57 L 93 10/16/23 12:00 10/16/23 12:00 10/16/23 12:00 10/16/23 12:00 10/16/23 12:00 General: Alert, Oriented x3, Cooperative HEENT: Atraumatic, PERRLA Neck: Supple, 2+ carotid pulse no bruit Respiratory: Clear to auscultation bilaterally, Normal air movement Cardiovascular: No edema, Normal pulses, Normal S1 S2 Capillary refill: <2 Seconds Gastrointestinal: Normal bowel sounds, No tenderness, Distended, Tenderness Musculoskeletal: No clubbing, No erythema Integumentary: No rashes, No significant lesion Neurological: Normal speech, Normal tone, Normal affect Lymphatics: No axilla or inguinal lymphadenopathy Laboratory Data at Discharge: WBC 11.90 thou/uL (4.3-10.9) H 10/15/23 06:52 Hgb 10.6 g/dL (13.6-17.9) L 10/15/23 06:52 Hct 33.3 % (39.6-49.0) L 10/15/23 06:52 Plt Count 355 thou/uL (152-406) 10/15/23 06:52 Sodium 140 mEq/L (136-145) 10/15/23 06:52 Potassium 3.3 mEq/L (3.5-5.1) L 10/15/23 06:52 BUN 6 mg/dL (7-18) L 10/15/23 06:52 Creatinine 0.72 mg/dL (0.70-1.30) 10/15/23 06:52 Glucose 140 mg/dL (74-106) H 10/15/23 06:52 Total Bilirubin 0.4 mg/dL (0.2-1.0) 10/15/23 06:52 AST 56 U/L (15-37) H 10/15/23 06:52 ALT 84 U/L (16-61) H 10/15/23 06:52 Alkaline Phosphatase 106 U/L (45-117) 10/15/23 06:52 Lipase 28 U/L (13-75) 10/13/23 23:51 Home Medications: Atorvastatin Calcium 40 mg PO DAILY 10/14/23 Furosemide [Lasix] 1 tab PO DAILY 10/14/23 Lisinopril [Zestril] 20 mg PO DAILY 10/14/23 Sildenafil Citrate 20 mg PO TID 10/14/23 carvediloL [Carvedilol] 6.25 mg PO BID 10/14/23 Amox/Clavulanate [Augmentin 875-125 Tab] 1 each PO BID #14 tab 10/16/23 Pantoprazole [Protonix Tab] 40 mg PO BID #60 tab 10/16/23 New Medications: Amox/Clavulanate [Augmentin 875-125 Tab] 1 each PO BID #14 tab Pantoprazole [Protonix Tab] 40 mg PO BID #60 tab Physician Discharge Instructions: -DC IV and DC home -Follow-up with PCP in 1 to 2 weeks -Follow-up with GENERAL SURGEON in 1 to 2 weeks -Please call Dr. Holloway at [phone] if any questions regarding hospital stay -Please call nursing station at [phone] if any nursing or medication questions -Return to the emergency room if symptoms worsen Diet: SOFT/PUREE Activity: Fall precautions Followup: Gucci Gomez MD [Primary Care Provider] - 1-2 Weeks Sacha Malcolm MD [ACTIVE - CAN ADMIT] - 1-2 Weeks Physician Review: Patient Assessed, Agree with Above Assessment and Plan
[2023-10-16 17:14] VITALS: BP 106/64
== END 2023-10-16 18:00 | disposition home or self-care (01) | DRG 394 ==
LOC: ER 22:57 → 3RD-ICU 10-14 04:02 → 4TH 10-14 23:55
PROVIDERS: ADMIT Family Medicine; ATTEND Hospitalist
PROC: 0DH67UZ Insertion of Feeding Device into Stomach, Via Natural or Artificial Opening (ICD-10-PCS; principal; 2023-10-14)
DX: K43.6 Other and unspecified ventral hernia with obstruction, without gangrene (principal); Z68.41 Body mass index [BMI] 40.0-44.9, adult; E66.01 Morbid (severe) obesity due to excess calories; E11.9 Type 2 diabetes mellitus without complications; I10 Essential (primary) hypertension; J44.9 Chronic obstructive pulmonary disease, unspecified; Z90.49 Acquired absence of other specified parts of digestive tract; Z79.02 Long term (current) use of antithrombotics/antiplatelets; Z79.899 Other long term (current) drug therapy
CPT/HCPCS: 36415; 74018; 74177; 80053; 81003; 83605; 83690; 85025; 96374; 96375; 99285; C9113; J1630; J2270; J2405; J2543; J2765; J7030; Q9967